=== PATIENT | female | born 1955 | race Caucasian/White ===

== ENCOUNTER 2022-03-05 08:40 | Inpatient (IN) ==
[~2022-03-05 08:40] MED LIST: Buffered Lidocaine 1% SYRIN 1 ml INTRADERM ONE; Famotidine IV 10 MG/ML 2 ml VIAL (20 mg) IV ONE; Lactated Ringers 1000 ml BAG 1,000 ML IV SCH
[2022-03-05] MEDS ORDERED: ceFAZolin 2 GM in NS PREMIX 2 GM/100 ML BAG IVPB ONE (08:58)
[2022-03-05] MEDS ORDERED: Famotidine IV 10 MG/ML 2 ml VIAL (20 mg) ONE (08:59)
[2022-03-05] MEDS ORDERED: Dextrose 50% Syringe 50 ml 25 GM/50 ML SYRINGE IV PUSH PRN (10:19)
[2022-03-05] MEDS ORDERED: fentaNYL 100 mcg/2 ml 50 MCG/ML VIAL ONE (10:44)
[2022-03-05] MEDS ORDERED: ROPIVACAINE 5 MG/ML 30 ML BTL (0.5%) ONE ×2 (10:44→11:10)
[2022-03-05] MEDS ORDERED: Midazolam 10 mg/10 ml VIAL 1 mg/ml 10 ml VIAL (10 mg) ONE (10:44)
[2022-03-05] MEDS ORDERED: Lidocaine 2% PF 5 ML VIAL ONE ×2 (10:44→11:06)
[2022-03-05] MEDS ORDERED: Dexamethasone IV 4 MG/ML VIAL 1 ml VIAL ONE (11:06)
[2022-03-05] MEDS ORDERED: Ondansetron 4 mg VIAL 2 MG/ML 2 ml VIAL ONE (11:06)
[2022-03-05] MEDS ORDERED: fentaNYL 250 mcg/5 ml 50 MCG/ML 5 ml VIAL (250 MCG) ONE (11:06)
[2022-03-05] MEDS ORDERED: Propofol 10 MG/ML 20 ML BTL ONE (11:06)
[2022-03-05] MEDS ORDERED: Phenylephrine 40 mcg/mL 10mL (400mcg) SYRINGE ONE (11:51)
[2022-03-05] MEDS ORDERED: fentaNYL 100 mcg/2 ml 50 MCG/ML VIAL IV PRN (11:59)
[2022-03-05] MEDS ORDERED: Naloxone 0.4 mg VIAL 0.4 mg/ml 1 ml VIAL IV PRN (11:59)
[2022-03-05] MEDS ORDERED: Ondansetron 4 mg VIAL 2 MG/ML 2 ml VIAL IV PRN ×2 (11:59→14:33)
[2022-03-05] MEDS ORDERED: Acetaminophen IV 1 GM/100ML 0 MG/0 ML BAG IV ONE (12:30)
[2022-03-05] MEDS ORDERED: Magnesium Hydroxide LIQ 30 ML UDC PO PRN (14:33)
[2022-03-05] MEDS ORDERED: Ondansetron ODT 4 mg TAB 4 MG TAB PO PRN (14:33)
[2022-03-05] MEDS ORDERED: Lactulose 30 ml UDC PO PRN (14:33)
[2022-03-05] MEDS ORDERED: Clotrimazole 1% CREAM 30 gm TOPICAL PRN (14:44)
[2022-03-05] MEDS ORDERED: Lactated Ringers 1000 ml BAG 1,000 ML IV SCH (15:00)
[2022-03-05] MEDS ORDERED: Morphine 2 MG/ML SYRINGE IV PRN (15:21)
[2022-03-05] MEDS: ceFAZolin 1 GM ADVAN 1 GM in NS 0.9% 50 ML 50 ML IVPB SCH (20:44)
[2022-03-05] MEDS: Gemfibrozil 600 mg PO SCH (20:46)
[2022-03-05] MEDS: Magnesium Hydroxide LIQ 30 ML UDC PO SCH (20:48)
[2022-03-06] MEDS: ceFAZolin 1 GM ADVAN 1 GM in NS 0.9% 50 ML 50 ML IVPB SCH ×2 (04:01→11:37)
[2022-03-06 05:36] LABS: ABS Lymphocytes 1.2 10^3/ul (1.0-4.8); ABS Monocytes 0.8 10^3/ul (0-0.8); ABS Neutrophils 5.8 10^3/ul (1.5-7.7); Hematocrit 32 % (35-47); Hemoglobin 10.7 g/dL (12.0-16.0); Lymphocyte % 15.4 %; Mean Corpuscular HGB Conc 34 g/dL (31-36); Mean Corpuscular Hemoglobin 33 pg (27-31); Mean Corpuscular Volume 96 fL (80-97); Mean Platelet Volume 8.6 fL (7.4-10.4); Platelet Count 125 10^3/uL (150-450); Red Blood Count 3.28 10^6 /uL (3.70-4.87); Red Cell Distribution Width 13 % (10-15); White Blood Count 7.8 10^3/uL (3.5-10.8)
[2022-03-06 05:47] LABS: Albumin 3.2 g/dL (3.2-5.2); Calcium 8.9 mg/dL (8.6-10.3); Direct Bilirubin 0.2 mg/dL (0.03-0.18); Globulin 3.1 g/dL (2-4); Indirect Bilirubin 1.3 mg/dL (0.3-1.0); Potassium 4.1 mmol/L (3.5-5.0); Total Bilirubin 1.5 mg/dL (0.2-1.0); Total Protein 6.3 g/dL (6.4-8.9)
[2022-03-06 05:54] LABS: INR 1.25 (0.89-1.11)
[2022-03-06] MEDS: Gemfibrozil 600 mg PO SCH (08:53)
[2022-03-06] MEDS: Magnesium Hydroxide LIQ 30 ML UDC PO SCH (08:53)
[2022-03-06] MEDS ORDERED: SitaGLIPtin 100 mg TAB (NF) PO SCH (09:00)
[2022-03-06] MEDS ORDERED: Cholecalciferol (VIT D3) 1,000 unit TAB PO SCH (09:00)
[2022-03-06] MEDS ORDERED: Vitamin THERAPEUTIC TAB PO SCH (09:00)
[2022-03-06 11:29] VITALS: BP 103/52
== END 2022-03-06 13:27 | disposition home or self-care (01) | DRG 470 ==
LOC: AA 08:40 → SSU 16:08
PROVIDERS: ADMIT Orthopaedic Surgery Adult Reconstructive Orthopaedic Surgery; ATTEND Orthopaedic Surgery Adult Reconstructive Orthopaedic Surgery